=== PATIENT | female | born 1940 | race Caucasian/White ===

== ENCOUNTER 2022-02-19 06:26 | Day surgery (SDC) | payer MEDICARE ==
[2022-02-15 13:11] LABS: BASOPHILS % (AUTO) 0.7 % (0.0-5.0); EOSINOPHILS % (AUTO) 6.4 % (0.0-8.0); HEMATOCRIT 40.3 % (36-48); LYMPHOCYTES % (AUTO) 13.5 % (21.0-51.0); MEAN CORPUSCULAR HEMOGLOBIN 28.5 pg (27.0-33.0); MEAN CORPUSCULAR VOLUME 89.2 fL (79-99); MONOCYTES % (AUTO) 8.9 % (3.0-13.0); NEUTROPHILS % (AUTO) 70.2 % (40.0-77.0); PLATELET COUNT (AUTO) 253 K/uL (130-400); RED BLOOD CELL COUNT(AUTO) 4.52 MIL/uL (4.00-5.50); RED CELL DISTRIBUTION WIDTH 14.7 % (11.0-15.5); WHITE BLOOD COUNT (AUTO) 7.4 K/uL (4.8-10.8)
[2022-02-15 13:14] LABS: APPEARANCE,URINE CLEAR (CLEAR); BILIRUBIN,URINE NEGATIVE (NEGATIVE); COLOR,URINE LIGHT-YELLOW (YELLOW); GLUCOSE, URINE (UA) NEGATIVE (NEGATIVE); KETONES,URINE NEGATIVE (NEGATIVE); LEUKOCYTE ESTERASE ,URINE 250 Leu/uL (NEGATIVE); NITRATE,URINE NEGATIVE (NEGATIVE); OCCULT BLOOD,URINE NEGATIVE (NEGATIVE); PROTEIN,URINE NEGATIVE (NEGATIVE); UROBILINOGEN,URINE 0.2 mg/dL (0.2-1.0)
[2022-02-15 13:18] LABS: RBC,URINE 0-1 /HPF (0-1); YEAST,URINE BUDDING RARE /HPF (None Seen)
[2022-02-15 13:21] LABS: CREATININE 0.9 mg/dL (0.5-1.5); POTASSIUM 4.5 mmol/L (3.5-5.1)
[2022-02-15 13:27] LABS: INR 1.04 (0.85-1.15); PROTHROMBIN TIME 11.3 SEC (9.6-11.6)
[2022-02-15 13:28] LABS: PARTIAL THROMBOPLASTIN TIME 28.1 SEC (26.3-35.5)
[2022-02-18 09:28] VITALS: BP 132/84
[~2022-02-19] VITALS: Ht 160 cm; Wt 68.9 kg
[~2022-02-19 06:26] MED LIST: AEC81 PO; AMLO-257 PO; APIX2.5T PO; ASCO100031 PO; CALC-1125 PO; CRAN400T3 PO; FENO134C21 PO; FISH1CAP63 PO; LOSA50TA64 PO; LYSI500T11 PO; MIRA50TA PO; SOTA80TA PO; TRAZ-185 PO; VITA1CAP85 PO; VITAMIN B12 PO; VITAMIN D3 PO
[2022-02-19 06:30] VITALS: BP 136/81
[2022-02-19] MEDS ORDERED: EPINEPHRINE PF 1MG (1:1,000) 1 MG/ML AMP ONE (07:31)
[2022-02-19] MEDS ORDERED: LIDOCAINE PF 100MG/5ML (2%) SYRINGE 5ML ONE (07:57)
[2022-02-19] MEDS ORDERED: PROPOFOL 10 MG/ML 20ML VIAL IV ONE (07:57)
[2022-02-19] MEDS ORDERED: 0.9%NACL 1000ML 1,000 ML IV SCH (08:00)
[2022-02-19] MEDS ORDERED: DiphenhydrAMINE HCL 50 MG/ML VIAL IVP PRN (08:00)
[2022-02-19] MEDS ORDERED: LIDOCAINE HCL 2% VISCOUS 15 ML UDCUP ONE (08:20)
[2022-02-19 08:32] VITALS: BP 126/59
[2022-02-19 10:30] VITALS: BP 102/77
[2022-02-19 10:45] VITALS: BP 123/81
[2022-02-19 11:00] VITALS: BP 131/70
== END 2022-02-19 11:05 | disposition home or self-care (01) ==
LOC: DAH 06:26
PROVIDERS: ATTEND Internal Medicine Interventional Cardiology
DX: I48.0 Paroxysmal atrial fibrillation (principal); I08.1 Rheumatic disorders of both mitral and tricuspid valves; I10 Essential (primary) hypertension; E78.5 Hyperlipidemia, unspecified; Z98.890 Other specified postprocedural states; Z79.82 Long term (current) use of aspirin; Z79.01 Long term (current) use of anticoagulants; Z79.899 Other long term (current) drug therapy; Z90.710 Acquired absence of both cervix and uterus; Z90.5 Acquired absence of kidney; Z86.73 Personal history of transient ischemic attack (TIA), and cerebral infarction without residual deficits
CPT/HCPCS: 80048; 85025; 85610; 85730; 87088; 81001; 36415; 93005 ×3; 92960; 93312; J1200; J2001; J2704; A4215; A4222; A4221; A4663; A4216; A4606; A4223 ×3; 99152; J0171

== ENCOUNTER 2024-09-08 13:16 | Emergency (ER) | payer MEDICARE ==
[~2024-09-08] VITALS: Ht 162.6 cm; Wt 68.0 kg
[2024-09-08 14:26] LABS: IMMATURE GRANULOCYTE ABSOLUTE 0.04 K/uL (0-1); NUCLEATED RED BLOOD CELLS 0.0 % (0.0-0.19); PLATELET COUNT (AUTO) 213 K/uL (130-400); RED BLOOD CELL COUNT(AUTO) 4.62 MIL/uL (4.00-5.50); RED CELL DISTRIBUTION WIDTH 14.6 % (11.0-15.5); WHITE BLOOD COUNT (AUTO) 8.2 K/uL (4.8-10.8)
[2024-09-08 14:34] LABS: CREATININE 1.1 mg/dL (0.5-1.0); GLOMERULAR FILTR. RATE CALC 50.0 mL/min (>90); GLUCOSE,RANDOM 95.0 mg/dL (70-105); SODIUM SERUM 141.0 mmol/L (136-145); UREA NITROGEN, BLOOD 44.0 mg/dL (7-18)
[2024-09-08] MEDS: LACTATED RINGERS 1000ML 1,000 ML IV ONE (15:03)
[2024-09-08 15:10] VITALS: BP 109/61; PULSE 74; RESP 20; TEMP 98.7; O2SAT 98
[2024-09-08] MEDS ORDERED: FLUT16H NS (15:33)
[2024-09-08] MEDS ORDERED: LORA10TA7 PO (15:33)
--- NOTE | 2024-09-08 15:34 | ERN ---
General Chief Complaint: Cough Stated Complaint: LOW BP Time Seen by MD: 13:20 Source: patient History of Present Illness Initial Comments Patient is a 83-year-old female coming in complaining of a cough and congestion. Per patient she has been having a cough for two weeks. She has started but states he has not felt any better. Earlier today she was more concerned because she was checking her blood pressure noticed it was low. In triage blood pressure was within normal limits. Allergies: Coded Allergies: metoprolol (Verified Allergy, Unknown, 02/15/22) Home Meds Reported Medications Mirabegron (Myrbetriq) 50 Mg Tab.er.24h, 50 MG PO DAILY, TAB 02/18/22 Amlodipine Besylate (Amlodipine Besylate) 5 Mg Tablet, 5 MG PO DAILY, TAB 02/18/22 Sotalol HCl (Sotalol) 80 Mg Tablet, 80 MG PO BID, TAB 02/18/22 Apixaban (Eliquis) 2.5 Mg Tablet, 2.5 MG PO BID, TAB 02/18/22 Trazodone HCl (Trazodone HCl) 50 Mg Tablet, 50 MG PO HS, TAB 02/18/22 [Vitamin B12] No Conflict Check, 1000 MCG PO DAILY 02/18/22 [Vitamin D3] No Conflict Check, 2000 UNITS PO DAILY 02/18/22 Vitamin B Complex (Vitamin B Complex) 1 Each Capsule, 1 EACH PO DAILY, CAP 02/18/22 Aspirin (ASPIRIN 81 MG ECTAB) 81 Mg Ectab, 81 MG PO DAILY, TAB.EC 02/18/22 Lysine (l-Lysine) 500 Mg Tablet, 2 TAB PO DAILY, TAB 02/18/22 Ascorbic Acid (Vitamin C) 1,000 Mg Tablet, 1000 MG PO DAILY, TAB 02/18/22 Cranberry Fruit (Cranberry) 400 Mg Tablet, 400 MG PO DAILY, TAB 02/18/22 Calcium Carbonate (Calcium) 600 Mg Tablet, 600 MG PO DAILY, TAB 02/18/22 Fish Oil/Dha/Epa (Fish Oil 1,200 mg Fish Oil) 1 Each Capsule, 1 EACH PO TID, CAP 02/18/22 Fenofibrate,Micronized (Fenofibrate) 134 Mg Capsule, 134 MG PO DAILY, CAP 02/18/22 Losartan Potassium (Losartan Potassium) 50 Mg Tablet, 50 MG PO BID, TAB 02/18/22 Past Medical History Past Medical History: Hypertension Past Surgical History: Other ROS Dictation CONSTITUTIONAL: No chills, no fever, no weakness, no diaphoresis, no malaise. HEAD/FACE: No signs of trauma. EENT: No eye pain, no blurred vision, no tearing, no double vision, no ear pain, no ear discharge, no nose pain,nasal congestion, no throat pain, no throat swelling, no mouth pain. RESPIRATORY: No cough, no orthopnea, no SOB, no stridor, no wheezing. CARDIOVASCULAR: No chest pain, no edema, no palpitations, no syncope. GASTROINTESTINAL/ABDOMINAL: No abdominal pain, no constipation, no diarrhea, no nausea, no vomiting. GENITOURINARY: No abnormal discharge, no dysuria, no frequent urination, no hematuria. No complaints of pain in the genitals. MUSCULOSKELETAL: No back pain, no gout, no joint pain, no joint swelling, no muscle pain, no muscle stiffness, no neck pain. INTEGUMENTARY: No change in color, no change in hair/nails, no dryness, no lesion, no lumps, no rash. NEUROLOGICAL/PSYCH: No anxiety, not depressed, no emotional problem, no headache, no numbness, no pre-existing deficit, no history of seizures, no tremors, no weakness. HEMATOLOGIC/LYMPHATIC: Not anemic, no history of blood clots, no apparent bleeding, no bruising, glands not swollen. All Systems Negative, Except as Noted. Physical Exam Physical Exam Dictation VITAL SIGNS: Reviewed. GENERAL APPEARANCE: Alert, oriented x3, no acute distress, obese. HEAD AND FACE: Non-traumatic. EYES: PERRL, pink conjunctivas, eyelid no trauma, anterior chamber clear. EARS: Pinnas intact and no signs of trauma or erythema. Ear canals clear and no discharge. TMs erythema. NOSE: No discharge, no bleeding. OROPHARYNX: Mouth normal, teeth no caries, tongue pink. Pharynx erythema. Tonsils no exudates, no abscesses noted. Mucous membrane moist. NECK: Supple, non-tender, no thyromegaly, no masses, no JVD, no bruits. BREAST: Deferred. CHEST: No tenderness, no crepitus, no paradoxical movement, no retractions. LUNGS: Clear, well-ventilated, symmetric, no rales, no wheezing, no rhonchi, no stridor, good breath sounds bilaterally. HEART: Regular rate, regular rhythm, no murmur, no gallops. VASCULAR: No peripheral edema. ABDOMEN: Soft, positive bowel sounds, nondistended, no guarding, nontender, no rebound, no masses no hepatomegaly, no splenomegaly, no Riggins's sign, no hernias. RECTAL: Deferred. GENITAL: Deferred. NEUROLOGICAL: Normal speech, gross motor function intact, gross sensory function intact. MUSCULOSKELETAL: Neck nontender, full range of motion, back nontender, full range of motion. EXTREMITIES: Nontender, full range of motion. SKIN: Color pink, dry, no turgor, no rash, no lacerations, no abrasions, no contusions. LYMPHATICS: Deferred. Results Laboratory and Microbiology Lab and Micro Result Laboratory Tests Test 09/08/24 14:18 White Blood Count 8.2 K/uL (4.8-10.8) Red Blood Count 4.62 MIL/uL (4.00-5.50) Hemoglobin 13.3 g/dL (12.0-16.0) Hematocrit 41.1 % (36-48) Mean Corpuscular Volume 89.0 fL (79-99) Mean Corpuscular Hemoglobin 28.8 pg (27.0-33.0) Mean Corpuscular Hemoglobin Concent 32.4 g/dL (32.0-36.0) Red Cell Distribution Width 14.6 % (11.0-15.5) Platelet Count 213 K/uL (130-400) Mean Platelet Volume 11.5 fL (7.5-10.5) H Immature Granulocyte % (Auto) 0.5 % (0-1) Neutrophils (%) (Auto) 66.5 % (40.0-77.0) Lymphocytes (%) (Auto) 19.0 % (21.0-51.0) L Monocytes (%) (Auto) 9.7 % (3.0-13.0) Eosinophils (%) (Auto) 3.7 % (0.0-8.0) Basophils (%) (Auto) 0.6 % (0.0-5.0) Neutrophils # (Auto) 5.4 K/uL (1.8-7.7) Lymphocytes # (Auto) 1.6 K/uL (1.0-4.8) Monocytes # (Auto) 0.8 K/uL (0.1-1.0) Eosinophils # (Auto) 0.30 K/uL (0.00-0.70) Basophils # (Auto) 0.05 K/uL (0.00-0.20) Absolute Immature Granulocyte (auto 0.04 K/uL (0-1) Nucleated Red Blood Cells 0.0 % (0.0-0.19) Sodium Level 141 mmol/L (136-145) Potassium Level 4.0 mmol/L (3.5-5.1) Chloride Level 105 mmol/L (101-111) Carbon Dioxide Level 27 mmol/L (21-32) Blood Urea Nitrogen 44 mg/dL (7-18) H Creatinine 1.1 mg/dL (0.5-1.0) H Glomerular Filtration Rate Calc 50 mL/min (>90) Random Glucose 95 mg/dL (70-105) Total Calcium 8.9 mg/dL (8.5-10.1) Magnesium Level 2.00 mg/dL (1.80-2.40) Troponin I High Sensitivity < 4 ng/L (4-50) L Labs Reviewed?: Yes EKG/XRAY/US/CT/MRI EKG Comment 09/08/2024 time 2:07 p.m. Ventricular rate 59 Sinus rhythm [place] [address] wave elevation or depression X-RAY Comment Chest X-ray-NAD MDM MDM: Differential diagnosis: Dehydration, sinusitis, URI, Rationale: Tests considered and ordered secondary to shared decision making include: Previous outside records reviewed: Old ER visits. Risk of complication and/or morbidity or mortality of patient management: None Medications-Per medication reconciliation Need for hospitalization: Patient does not meet criteria for hospitalization. Patient is a an 83-year-old female coming in complaining of cough. States that she checked her blood pressure was in the 90s got concerned came in throughout ER visit patient blood pressure has been with a normal limits. On physical exam oropharyngeal erythema with drainage, sinus pressure nasal turbinate swelling bilateral erythema of the tympanic membrane on consistent with sinusitis. Patient will be discharged in stable condition with a diagnosis of sinusitis. Medication will be provided for symptomatic relief. Did advised patient to stay overnight ongoing evaluation but patient refused he states he wants to follow up with the PCP. ED Course Orders Procedure Category Date Status Time Cbc With Differential LAB 09/08/24 Complete 14:02 Chest 1vw RAD 09/08/24 Taken 14:02 12 Lead Ekg Tracing- EKG 09/08/24 Logged Technical 14:02 Lactated Ringers PHA 09/08/24 Complete 1000ml (Lactated 14:30 Magnesium LAB 09/08/24 Complete 14:02 Troponin I High LAB 09/08/24 Complete Sensitivity 14:02 Urinalysis Profile LAB 09/08/24 Logged 14:02 Basic Metabolic Panel LAB 09/08/24 Complete 14:02 Current Medications Medications (Trade) Dose Ordered Sig/Karthik Route PRN Reason Start Time Stop Time Status Last Admin Dose Admin Lactated Ringer's 1,000 ml @ 0 mls/hr ONCE ONCE IV 09/08/24 14:30 09/08/24 14:31 DC 09/08/24 15:03 Vital Signs Date Time Temp Pulse Resp B/P (MAP) Pulse Ox O2 Delivery O2 Flow Rate FiO2 09/08/24 13:37 59 20 117/54 99 Room Air* 0 21 09/08/24 13:17 98.2 62 20 103/55 99 0 DX & DISP Disposition: Discharge Departure Impression: Primary Impression: Dehydration Additional Impression: Sinusitis Condition: Stable Scripts Loratadine (Loratadine) 10 Mg Tablet 1 TAB PO DAILY for allergy symptoms for 30 Days, #30 TAB 0 Refills Prov: ROBER PRESSLEY MD 09/08/24 Fluticasone Propionate (Flonase Nasal [place]) 50 Mcg/Actuation [place] 2 SPRAY NS DAILY, #16 GM 0 Refills Prov: ROBER PRESSLEY MD 09/08/24 Additional Instructions: You have been reviewed in the emergency department at [facility] after presenting with chest pain. After considering your history, your risk factors, your EKG and your blood test troponins, have been found to be at very low risk less than (1 in 100) of having a major adverse cardiac event (like heart attack) in the near future. In the " low risk" group, the risks of doing further tests and treatment as the inpatient outweighs the benefits. In many patients in the low risk group for the test of any sort or unnecessary, however he should discuss this further with his general practitioner who will understand the medical and personal backgrounds better. Because we have never declared you" no risk" we would suggest. 1 returning for medical review if you have further episodes of chest pain/arm pain or other concerning symptoms like dizziness, collapse, palpitations or shortness of breath. 2. Following up with your local doctor who will consider the need for further testing and will also ensure that any modifiable risk factors you may have for heart disease are optimally managed. Patient will be discharged in stable condition at the moment discharge patient states , no chest pain Referrals: CLARISSE GUTIERREZ MD (PCP) RUBEN LAMA MD Time of Disposition: 15:33 ROBER PRESSLEY MD Sep 08, 2024 15:34
--- NOTE | 2024-09-08 16:14 | HMCIMG ---
EXAM: CR Chest, 1 View. CLINICAL HISTORY: cough COMPARISON: Radiograph dated September 03, 2014 FINDINGS: LUNGS: There is no mass, infiltrate, or acute pulmonary abnormality. PLEURAL SPACES: No pleural effusion or pneumothorax. MEDIASTINUM: Cardiac size and mediastinal contours within normal limits. BONES: No aggressive appearing osseous lesion seen. IMPRESSION: No acute cardiopulmonary pathology is evident. /[place]
--- NOTE | 2024-09-09 07:25 | EKG ---
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
== END 2024-09-08 15:30 | disposition home or self-care (01) ==
LOC: EDH 13:16
DX: E86.0 Dehydration (principal); J32.9 Chronic sinusitis, unspecified; I10 Essential (primary) hypertension; Z79.01 Long term (current) use of anticoagulants; Z79.82 Long term (current) use of aspirin; Z79.899 Other long term (current) drug therapy
CPT/HCPCS: 99285; 96360; 71045; 83735; 84484; 80048; 85025; 36415; 93005; J7120; 99284